=== PATIENT | male | born 1965 | race Caucasian/White ===

== ENCOUNTER 2017-02-05 07:55 | Emergency (ER) | payer OTHER, MEDICAID ==
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
[2017-02-05 08:32] LABS: ABSOLUTE BASOPHILS # (AUTO) 0.1 10^3/uL (0.0-0.2); ABSOLUTE EOSINOPHILS # (AUTO) 0.1 10^3/uL (0.0-0.6); ABSOLUTE LYMPHOCYTES (AUTO) 2.3 10^3/uL (0.5-4.7); ABSOLUTE MONOCYTES (AUTO) 0.6 10^3/uL (0.1-1.4); ABSOLUTE NEUT (AUTO) 5.6 10^3/uL (1.7-8.2); BASOPHILS % (AUTO) 0.7 % (0-2); EOSINOPHILS % (AUTO) 1.4 % (0-6); HEMATOCRIT 41.2 % (37.9-51.0); HEMOGLOBIN 13.8 g/dL (13.5-17.0); HGB HCT DIFFERENCE 0.2; LYMPHOCYTES % (AUTO) 26.4 % (13-45); MEAN CORPUSCULAR HEMOGLOBIN 27.9 pg (27.0-33.4); MEAN CORPUSCULAR HGB CONC 33.6 g/dL (32.0-36.0); MEAN CORPUSCULAR VOLUME 83 fl (80-97); MONOCYTES % (AUTO) 7.1 % (3-13); RED BLOOD COUNT 4.96 10^6/uL (4.35-5.55); RED CELL DISTRIBUTION WIDTH 14.7 % (11.5-14.0); SEGMENTED NEUTROPHILS % (AUTO) 64.4 % (42-78); WHITE BLOOD COUNT 8.7 10^3/uL (4.0-10.5)
[2017-02-05 08:43] LABS: ALANINE AMINOTRANSFERASE 44 U/L (21-72); ALBUMIN 3.4 g/dL (3.5-5.0); ALKALINE PHOSPHATASE 99 U/L (38-126); ANION GAP 12 (5-19); ASPARTATE AMINO TRANSFERASE 38 U/L (17-59); BILIRUBIN,DIRECT 0.3 mg/dL (0.0-0.4); BILIRUBIN,TOTAL 0.3 mg/dL (0.2-1.3); BLOOD UREA NITROGEN 10 mg/dL (7-20); CALCIUM 8.9 mg/dL (8.4-10.2); CARBON DIOXIDE 26 mmol/L (22-30); CHLORIDE 104 mmol/L (98-107); CREATINE KINASE 120 U/L (55-170); CREATININE RESULT 0.44 mg/dL (0.52-1.25); GLUCOSE 209 mg/dL (75-110); POTASSIUM 3.8 mmol/L (3.6-5.0); SODIUM 141.8 mmol/L (137-145); TOTAL PROTEIN 6.5 g/dL (6.3-8.2)
[2017-02-05 08:56] LABS: TROPONIN I < 0.012 ng/mL
[2017-02-05 10:16] VITALS: BP 177/101
[2017-02-05 10:41] LABS: APPEARANCE,URINE CLEAR; BILIRUBIN,URINE NEGATIVE (NEGATIVE); GLUCOSE, URINE 150 mg/dL (NEGATIVE); KETONES,URINE NEGATIVE (NEGATIVE); LEUKOCYTE ESTERASE,URINE NEGATIVE (NEGATIVE); NITRITE,URINE NEGATIVE (NEGATIVE); PROTEIN,URINE 100 mg/dL (NEGATIVE); URINE SPECIFIC GRAVITY 1.059; UROBILINOGEN,URINE NEGATIVE mg/dL (<2.0)
[2017-02-05] MEDS ORDERED: MORPHINE SULFATE 10 MG/ML INJ IV ONE (10:55)
--- NOTE | 2017-02-05 18:29 | EKG REPORT ---
SEVERITY:- ABNORMAL ECG - SINUS RHYTHM NONSPECIFIC T ABNORMALITIES, LATERAL LEADS : Confirmed by: Clemente Arias MD 05-Feb-2017 18:28:15
== END 2017-02-05 10:01 | disposition home or self-care (01) ==
LOC: ER 07:55
DX: S39.012A Strain of muscle, fascia and tendon of lower back, initial encounter (principal); R91.8 Other nonspecific abnormal finding of lung field; R07.9 Chest pain, unspecified; V89.2XXA Person injured in unspecified motor-vehicle accident, traffic, initial encounter; E66.01 Morbid (severe) obesity due to excess calories; F17.200 Nicotine dependence, unspecified, uncomplicated; E78.00 Pure hypercholesterolemia, unspecified; I10 Essential (primary) hypertension; J44.9 Chronic obstructive pulmonary disease, unspecified; E11.9 Type 2 diabetes mellitus without complications; Z88.3 Allergy status to other anti-infective agents
CPT/HCPCS: 93005; 99285; 96374; 36415; 82553; 82550; 85025; 80053; 81001; 84484; 71260; 72125; 74177; 93010; J2270

== ENCOUNTER → 2017-03-09 | Outpatient (CLI) | payer MEDICAID ==
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
== END ==
LOC: RAD 07:13
PROVIDERS: ATTEND Internal Medicine Pulmonary Disease
DX: R13.10 Dysphagia, unspecified (principal)
CPT/HCPCS: 74230

== ENCOUNTER → 2017-05-10 | Outpatient (CLI) | payer MEDICAID ==
--- NOTE | 2017-05-10 11:20 | RADIOLOGY REPORT (SQ) ---
EXAM DESCRIPTION: CT CHEST WITHOUT COMPLETED DATE/TIME: 05/10/2017 9:41 am REASON FOR STUDY: PULMONARY NODULES R91.8 OTHER NONSPECIFIC ABNORMAL FINDING OF LUNG FIELD COMPARISON: 02/05/2017 TECHNIQUE: CT scan performed of the chest without intravenous contrast. Images reviewed with lung, soft tissue and bone windows. Reconstructed coronal and sagittal MPR images reviewed. All images st ored on PACS. All CT scanners at this facility use dose modulation, iterative reconstruction, and/or weight based d osing when appropriate to reduce radiation dose to as low as reasonably achievable (ALARA). [facility]: Dose Right [facility]: CareDose [facility]: Dose Right [facility]: Teradose 4D [facility]: Smart [id number] RADIATION DOSE: Up-to-date CT equipment and radiation dose reduction techniques were employed. CTDIv ol: 17.7 mGy. DLP: 732 mGy-cm. mGy. LIMITATIONS: None FINDINGS: LUNGS AND PLEURA: There is a 4 mm nodule in the right lung posteriorly adjacent to a 2 mm nodule. This is seen on image 47 series 4. There is no change. On image 67 there is a 7 mm stable nodule in the right middle lobe. A couple of other small nodules are seen. These likewise are stabl e. There is no new pulmonary nodule. There is no pulmonary infiltrate or pleural effusion. HILAR AND MEDIASTINAL STRUCTURES: There is a 17 mm pretracheal node on image 22. Additional smaller mediastinal nodes are present. There is no significant interval change. HEART AND VASCULAR STRUCTURES: No aneurysm. No pericardial effusion. UPPER ABDOMEN: No significant findings. Limited exam. THYROID AND OTHER SOFT TISSUES: No masses. No adenopathy. BONES: No significant finding. HARDWARE: None in the chest. OTHER: No other significant findings. IMPRESSION: There is a stable appearance of the chest with some small pulmonary nodules and mediasti nal nodes as described. TECHNICAL DOCUMENTATION: JOB ID: [id number] Quality ID # [id number]: Final reports with documentation of one or more dose reduction techniques (e.g., Au tomated exposure control, adjustment of the mA and/or kV according to patient size, use of iterative reconstruction technique) 2010 [employer]- All Rights Reserved
== END ==
LOC: RAD 09:06
PROVIDERS: ATTEND Internal Medicine Pulmonary Disease
DX: R91.8 Other nonspecific abnormal finding of lung field (principal)
CPT/HCPCS: 71250

== ENCOUNTER 2018-05-01 23:36 | Emergency (ER) | payer OTHER, MEDICAID ==
[2018-05-02 01:01] VITALS: BP 183/87
[2018-05-02] MEDS ORDERED: HYDROCODONE/ACETAMINOPHEN 5-325 MG TABLET PO ONE (01:44)
[2018-05-02] MEDS ORDERED: CYCLOBENZAPRINE HCL 10 MG TABLET PO ONE (01:44)
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
== END 2018-05-02 02:04 | disposition home or self-care (01) ==
LOC: ER 23:36
DX: M54.5 Low back pain (principal); M54.2 Cervicalgia; V89.2XXA Person injured in unspecified motor-vehicle accident, traffic, initial encounter; Z88.3 Allergy status to other anti-infective agents; E78.00 Pure hypercholesterolemia, unspecified; I10 Essential (primary) hypertension; E11.9 Type 2 diabetes mellitus without complications
CPT/HCPCS: 99283

== ENCOUNTER 2020-06-28 15:04 | Inpatient (IN) | payer MEDICAID ==
--- NOTE | 2020-06-28 15:54 | ER Document Report ---
ED Hip Pain/Injury - General Chief Complaint: Hip Pain Stated Complaint: FALL INJURY Time Seen by Provider: 06/28/20 15:22 Mode of Arrival: Medic Information source: Patient Notes: 55-year-old male past medical history significant for hypertension, prediabetes, COPD, hyperlipidemia presents to the emergency room after a slip and fall while out having lunch at a restaurant landing on his left hip. Patient states he slipped on a throw rug causing him to fall landing on his left hip. Unable to ambulate secondary to pain. Was given 200 mcg of fentanyl along with 1 mg of Dilaudid via EMS prior to arrival. Still complaining of significant pain with any type of movement. No history of previous trauma or injury to his left hip. TRAVEL OUTSIDE OF THE [place] IN LAST 30 DAYS: No - Related Data Allergies/Adverse Reactions: naproxen [Naproxen] Allergy (Verified 05/19/13 18:50) sulfamethoxazole [From Septra DS] Allergy (Verified 05/19/13 18:50) trimethoprim [From Septra DS] Allergy (Verified 05/19/13 18:50) flowfast Allergy (Uncoded 06/13/19 00:26) Past Medical History - General Information source: Patient - Social History Smoking Status: Current Every Day Smoker Frequency of alcohol use: None Drug Abuse: None Family History: Reviewed & Not Pertinent - Past Medical History Cardiac Medical History: Reports: Hx Hypercholesterolemia, Hx Hypertension Denies: Hx Coronary Artery Disease, Hx Heart Attack Pulmonary Medical History: Reports: Hx Asthma, Hx Bronchitis, Hx COPD, Hx Pneumonia Neurological Medical History: Denies: Hx Cerebrovascular Accident, Hx Seizures Endocrine Medical History: Reports: Hx Diabetes Mellitus Type 2 Renal/ Medical History: Denies: Hx Peritoneal Dialysis Musculoskeletal Medical History: Reports Hx Arthritis Past Surgical History: Reports: Hx Abdominal Surgery - umbilical hernia repair, Hx Appendectomy, Hx Orthopedic Surgery. Denies: Hx Pacemaker - Immunizations Hx Diphtheria, Pertussis, Tetanus Vaccination: Yes Review of Systems - Review of Systems Constitutional: No symptoms reported Cardiovascular: No symptoms reported Respiratory: No symptoms reported Gastrointestinal: No symptoms reported Musculoskeletal: Joint pain Skin: No symptoms reported Neurological/Psychological: No symptoms reported -: Yes All other systems reviewed and negative Physical Exam - Vital signs Vitals: Resp Pulse Ox 12 96 06/28/20 15:24 06/28/20 15:24 - General General appearance: Appears well, Alert In distress: Moderate - Respiratory Respiratory status: No respiratory distress Chest status: Nontender Breath sounds: Normal Chest palpation: Normal - Cardiovascular Rhythm: Regular Heart sounds: Normal auscultation Murmur: No - Abdominal Inspection: Normal Distension: No distension Bowel sounds: Normal Tenderness: Nontender Organomegaly: No organomegaly - Extremities General upper extremity: Normal inspection Hip: Tender - Numbness on palpation over the left lateral hip. Left leg is shortened and rotated outward. Pain with any type of movement to the left hip., Pain with ROM, Unable to bear weight - Neurological Neuro grossly intact: Yes Cognition: Normal Orientation: AAOx4 Ann[place] Coma Scale Eye Opening: Spontaneous Ann-Marie Coma Scale Verbal: Oriented Ann-Marie Coma Scale Motor: Obeys Commands [place] Coma Scale Total: 15 Speech: Normal Motor strength normal: LUE, RUE, LLE, RLE Sensory: Normal Notes: Positive left pedal pulse. - Skin Skin Temperature: Warm Skin Moisture: Dry Skin Color: Normal Course - Re-evaluation Re-evalutation: 06/28/20 15:59 Patient with obvious hip fracture noted on x-ray prior to official reading. Will get labs, EKG, patient aware of need for admission pending all test results. 06/28/20 17:19 Have reviewed all test results with patient. He is aware of need for admission. Patient is agreeable to admission. Patient is aware that I have spoken with the orthopedist Dr. Olson who will see patient in the emergency room. - Vital Signs Vital signs: Temp Pulse Resp BP Pulse Ox 98.1 F 14 166/97 H 97 06/28/20 15:27 06/28/20 18:30 06/28/20 18:30 06/28/20 18:30 - Laboratory Result Diagrams: 06/28/20 16:09 06/28/20 16:09 Laboratory results interpreted by me: 06/28/20 06/28/20 06/28/20 16:09 16:09 18:00 WBC 15.7 H RDW 15.9 H Absolute Neuts (auto) 12.2 H Sodium 136.0 L Glucose 164 H Urine Protein >=500 H - Diagnostic Test Radiology reviewed: Reports reviewed - EKG Interpretation by Me EKG shows normal: Sinus rhythm Rhythm: NSR Additional EKG results interpreted by me: 06/28/20 16:02 EKG was interpreted by ER physician Dr. Rose No acute STEMI Normal sinus rhythm Rate 84 Borderline T wave abnormalities - Consults Dr. Olson Time consulted: 17:05 Reason for consultation: 06/28/20 17:12 Reviewed patient's testing as well as positive left comminuted intertrochanteric hip fracture. Dr. Olson would like patient admitted to medicine with orthopedic consult. Will come to the emergency room to see the patient. Consulted provider: will come to ER Laureen Sal Reason for consultation: 06/28/20 17:20 Spoke with nurse practitioner Laureen Sal who states patient does not meet criteria to be medically admitted that patient should be admitted to orthopedics with medicine consult. Will notify Dr. Olson of hospitalist decision. 06/28/20 18:57 Patient was seen and evaluated by Laureen Allen nurse practitioner after Dr. Ra kelley spoke with Dr. Larson and it was agreed that patient would be admitted to medicine with orthopedic consult. Consulted provider: will come to ER Discharge - Discharge Clinical Impression: Closed left hip fracture Qualifiers: Encounter type: initial encounter Qualified Code(s): S72.002A - Fracture of unspecified part of neck of left femur, initial encounter for closed fracture Condition: Stable Disposition: ADMITTED INPATIENT Admitting Provider: Michelle (Hospitalist) Unit Admitted: Medical Floor
--- NOTE | 2020-06-28 16:05 | RADIOLOGY REPORT (SQ) ---
EXAM DESCRIPTION: HIP LEFT AP/LATERAL IMAGES COMPLETED DATE/TIME: 06/28/2020 3:57 pm REASON FOR STUDY: unable to bear weight COMPARISON: None. NUMBER OF VIEWS: Two views. TECHNIQUE: AP and frog-leg view of the left hip. LIMITATIONS: None. FINDINGS: MINERALIZATION: Osteopenia. LEFT HIP: Comminuted intratrochanteric left hip fracture. OPPOSITE HIP: No fracture or dislocation. No worrisome bone lesions. SOFT TISSUES: No findings. OTHER: No other significant finding. IMPRESSION: Comminuted intratrochanteric left hip fracture. COMMENT: Pelvic fractures are often occult on plain radiographs. If strong clinical suspicion for f racture, recommend CT or MR. TECHNICAL DOCUMENTATION: JOB ID: [id number] 2010 [employer]- All Rights Reserved Reading location - IP/workstation name: [email or web address]
--- NOTE | 2020-06-28 16:13 | RADIOLOGY REPORT (SQ) ---
EXAM DESCRIPTION: CHEST SINGLE VIEW IMAGES COMPLETED DATE/TIME: 06/28/2020 4:05 pm REASON FOR STUDY: pre op COMPARISON: 05/19/2013 EXAM PARAMETERS: NUMBER OF VIEWS: One view. TECHNIQUE: Single frontal radiographic view of the chest acquired. RADIATION DOSE: NA LIMITATIONS: None. FINDINGS: LUNGS AND PLEURA: No opacities, masses or pneumothorax. No pleural effusion. MEDIASTINUM AND HILAR STRUCTURES: No masses. Contour normal. HEART AND VASCULAR STRUCTURES: Heart normal in size. Normal vasculature. BONES: No acute findings. HARDWARE: None in the chest. OTHER: No other significant finding. IMPRESSION: NO ACUTE RADIOGRAPHIC FINDING IN THE CHEST. TECHNICAL DOCUMENTATION: JOB ID: [id number] 2010 [employer]- All Rights Reserved Reading location - IP/workstation name: [email or web address]
[2020-06-28 16:32] LABS: ABSOLUTE BASOPHILS # (AUTO) 0.1 10^3/uL (0.0-0.2); ABSOLUTE EOSINOPHILS # (AUTO) 0.1 10^3/uL (0.0-0.6); ABSOLUTE LYMPHOCYTES (AUTO) 2.3 10^3/uL (0.5-4.7); ABSOLUTE MONOCYTES (AUTO) 0.9 10^3/uL (0.1-1.4); ABSOLUTE NEUT (AUTO) 12.2 10^3/uL (1.7-8.2); BASOPHILS % (AUTO) 0.6 % (0-2); EOSINOPHILS % (AUTO) 0.9 % (0-6); HEMATOCRIT 42.6 % (37.9-51.0); HEMOGLOBIN 14.4 g/dL (13.5-17.0); MEAN CORPUSCULAR HEMOGLOBIN 27.5 pg (27.0-33.4); MEAN CORPUSCULAR HGB CONC 33.8 g/dL (32.0-36.0); MEAN CORPUSCULAR VOLUME 81 fl (80-97); MONOCYTES % (AUTO) 5.6 % (3-13); PLATELET COUNT 258 10^3/uL (150-450); RED BLOOD COUNT 5.24 10^6/uL (4.35-5.55); RED CELL DISTRIBUTION WIDTH 15.9 % (11.5-14.0); SEGMENTED NEUTROPHILS % (AUTO) 77.9 % (42-78); TOTAL CELLS COUNTED % (AUTO) 100 %; WHITE BLOOD COUNT 15.7 10^3/uL (4.0-10.5)
--- NOTE | 2020-06-28 16:40 | EKG REPORT ---
SEVERITY:- BORDERLINE ECG - SINUS RHYTHM BORDERLINE T WAVE ABNORMALITIES : Confirmed by: Joshua Pulliam MD 28-Jun-2020 16:40:06
[2020-06-28 16:51] LABS: ALKALINE PHOSPHATASE 101 U/L (38-126); ANION GAP 5 (5-19); ASPARTATE AMINO TRANSFERASE 22 U/L (17-59); BILIRUBIN,TOTAL 0.4 mg/dL (0.2-1.3); BLOOD UREA NITROGEN 16 mg/dL (7-20); CALCIUM 8.8 mg/dL (8.4-10.2); CARBON DIOXIDE 27 mmol/L (22-30); CHLORIDE 104 mmol/L (98-107); GLUCOSE 164 mg/dL (75-110); POTASSIUM 4.2 mmol/L (3.6-5.0); TOTAL PROTEIN 7.5 g/dL (6.3-8.2)
[2020-06-28] MEDS ORDERED: ONDANSETRON HCL INJ/PF 4 MG/2 ML SDV IV ONE (17:19)
[2020-06-28] MEDS ORDERED: MORPHINE SULFATE 10 MG/ML INJ IV ONE (17:19)
[2020-06-28] MEDS ORDERED: ALBUTEROL SULFATE 0.083% NEB 2.5 MG/3 ML AMPUL NEB PRN (18:40)
[2020-06-28] MEDS ORDERED: ONDANSETRON HCL INJ/PF 4 MG/2 ML SDV IV PRN (18:40)
[2020-06-28] MEDS ORDERED: MAG HYDROX/AL HYDROX/SIMETH SUSP 30 ML UDCUP PO PRN (18:40)
[2020-06-28] MEDS ORDERED: ACETAMINOPHEN 325 MG TABLET PO PRN (18:40)
[2020-06-28] MEDS ORDERED: HYDRALAZINE HCL INJ/PF 20 MG/1 ML SDV IV PRN (18:45)
[2020-06-28] MEDS ORDERED: DEXTROSE 50%-WATER 25 GM/50 ML DISP.SYRIN IV PRN ×2 (18:47)
[2020-06-28] MEDS ORDERED: GLUCAGON,HUMAN RECOMB 1 MG INJ IM PRN (18:47)
[2020-06-28] MEDS ORDERED: DEXTROSE 40% GEL 15 GM TUBE PO PRN ×2 (18:47)
[2020-06-28] MEDS ORDERED: MORPHINE SULFATE 10 MG/ML INJ IV PRN (18:48)
[2020-06-28 18:49] LABS: APPEARANCE,URINE CLEAR; BILIRUBIN,URINE NEGATIVE (NEGATIVE); COLOR,URINE YELLOW; GLUCOSE, URINE NEGATIVE (NEGATIVE); KETONES,URINE NEGATIVE (NEGATIVE); LEUKOCYTE ESTERASE,URINE NEGATIVE (NEGATIVE); NITRITE,URINE NEGATIVE (NEGATIVE); PROTEIN,URINE >=500 mg/dL (NEGATIVE); URINE SPECIFIC GRAVITY 1.033; UROBILINOGEN,URINE NEGATIVE mg/dL (<2.0)
--- NOTE | 2020-06-28 19:15 | PDOC CONSULTATION ---
Consultation Consult Date: 06/28/20 Provider Consulted: SUDARSHAN GELLER JR History of Present Illness Admission Date/PCP: LAURI KEENAN DO History of Present Illness: ASTER BYRD is a 55 year old male with a PMH of hyptertension, diabetes, non-compliant COPD, daily tobacco use, and osteomyelitis. The patient slipped on a rug in his home resulting on a fall on his right hip with subsequent inability to ambulate and pain. He denies head injury, LOC or pain elsewhere. Pain is aching in nature, 8/10, worse with activity, improved with rest and pain medications. He has a history of osteomyelitis of the tibia with multiple prior debridements that eventually cleared years ago. No history of osteo proximal to the knee. Past Medical History Cardiac Medical History: Reports: Hyperlipidema, Hypertension Denies: Coronary Artery Disease, Myocardial Infarction Pulmonary Medical History: Reports: Asthma, Bronchitis, Chronic Obstructive Pulmonary Disease (COPD), Pneumonia Neurological Medical History: Denies: Seizures Endocrine Medical History: Reports: Diabetes Mellitus Type 2 Musculoskeltal Medical History: Reports: Arthritis Hematology: Denies: Anemia Past Surgical History Past Surgical History: Reports: Appendectomy, Orthopedic Surgery Denies: Pacemaker Social History Smoking Status: Current Every Day Smoker Family History Family History: Reviewed & Not Pertinent Parental Family History Reviewed: No Children Family History Reviewed: NA Sibling(s) Family History Reviewed.: NA Medication/Allergy Home Medications: Albuterol Sulfate [Ventolin Hfa Mdi 8 gm (ER Dispense)] 2 puff IH Q4H PRN 01/21/12 Lisinopril/Hydrochlorothiazide [Zestoretic 20-25 Mg Tablet] 1 each PO DAILY 01/21/12 Amlodipine Besylate [Norvasc 2.5 mg Tablet] 5 mg PO QHS 09/08/12 Atorvastatin Calcium [Lipitor 40 mg Tablet] 40 mg PO QHS 09/08/12 Fluticasone Propion/Salmeterol [Advair 100-50 Diskus] 1 each IH BID 09/08/12 Sitagliptin Phos/Metformin HCl [Janumet 50-1,000 Mg Tablet] 1 each PO DAILY 09/08/12 Ubidecarenone/Vit E Acet [Co Q-10 100 mg Softgel] 1 each PO QHS 09/08/12 Cyclobenzaprine HCl [Flexeril 10 Mg Tablet] 10 mg PO TID #10 tablet 05/19/13 Gabapentin [Neurontin] 600 mg PO TID 05/19/13 Oxycodone HCl/Acetaminophen [Percocet 5-325 mg Tablet] 1 - 2 tab PO ASDIR PRN #15 tablet 05/19/13 Ciprofloxacin HCl [Cipro 500 mg Tablet] 500 mg PO BID #14 tablet 07/05/14 Clindamycin HCl [Cleocin Hcl] 300 mg PO TID #21 capsule 07/05/14 Oxycodone HCl/Acetaminophen [Percocet 5-325 mg Tablet] 1 - 2 tab PO ASDIR PRN #15 tablet 07/05/14 Oxycodone HCl/Acetaminophen [Percocet 10-325 Mg Tablet] 1 each PO Q6HP PRN #25 tablet 03/12/15 Lidocaine [Lidoderm 5% (700 mg) Transdermal Patch] 1 patch TP DAILY #30 a dh..patch 09/23/15 Oxycodone HCl/Acetaminophen [Percocet 5-325 mg Tablet] 1 - 2 tab PO ASDIR PRN #3 0 tablet 09/23/15 Cyclobenzaprine HCl [Flexeril 10 mg Tablet] 10 mg PO TIDP PRN #15 tab 05/02/18 Ibuprofen [Motrin 800 mg Tablet] 800 mg PO Q8H PRN #30 tab 05/02/18 Allergies/Adverse Reactions: naproxen [Naproxen] Allergy (Verified 05/19/13 18:50) sulfamethoxazole [From Septra DS] Allergy (Verified 05/19/13 18:50) trimethoprim [From Septra DS] Allergy (Verified 05/19/13 18:50) flowfast Allergy (Uncoded 06/13/19 00:26) Review of Systems Review of Systems: Constitutional: ABSENT: anorexia, chills, night sweats Cardiovascular: ABSENT: chest pain Respiratory: ABSENT: dyspnea Gastrointestinal: ABSENT: vomiting Genitourinary: ABSENT: dysuria Integumentary: ABSENT: rash Neurological: ABSENT: confusion, memory loss, numbness Psychiatric: ABSENT: hallucinations Hematologic/Lymphatic: ABSENT: easy bleeding Physical Exam Vital Signs: Temp Pulse Resp BP Pulse Ox 98.1 F 14 166/97 H 97 06/28/20 15:27 06/28/20 18:30 06/28/20 18:30 06/28/20 18:30 Intake & Output 06/27/20 06/28/20 06/29/20 06:59 06:59 06:59 Weight 103.8 kg Physical Exam: General appearance: PRESENT: no acute distress, cooperative, well-nourished Head exam: PRESENT: atraumatic, normocephalic Eye exam: PRESENT: EOMI Ear exam: PRESENT: normal external ear exam Mouth exam: PRESENT: neck supple Neck exam: ABSENT: tracheal deviation Respiratory exam: PRESENT: symmetrical, unlabored. ABSENT: accessory muscle use, wheezes Pulses: PRESENT: normal radial pulses, normal dorsalis pedis pulse Vascular exam: PRESENT: normal capillary refill GI/Abdominal exam: ABSENT: distended, firm Extremities exam: PRESENT: full ROM of bilateral shoulders, elbows wrists, knees, hips and ankles without pain Musculoskeletal exam: PRESENT: full ROM, normal inspection of all 4 extremities aside from that noted below. Neurological exam: PRESENT: alert, awake, oriented to person, oriented to place, oriented to time Psychiatric exam: PRESENT: appropriate affect. ABSENT: agitated Focused psych exam: ABSENT: catatonic Skin exam: PRESENT: intact. ABSENT: dry All as above aside from that noted in the HPI and the following: Left lower extremity -Pulses 2+ distally -Compartments soft -Sensation grossly intact to L3-4-5 S1 -Motor grossly intact to EHL TA gastroc and quad -Shortened externally rotated Results Laboratory Results: 06/28/20 16:09 06/28/20 16:09 06/28/20 06/28/20 16:09 16:09 WBC 15.7 H RBC 5.24 Hgb 14.4 Hct 42.6 MCV 81 MCH 27.5 MCHC 33.8 RDW 15.9 H Plt Count 258 Seg Neutrophils % 77.9 Sodium 136.0 L Potassium 4.2 Chloride 104 Carbon Dioxide 27 Anion Gap 5 BUN 16 Creatinine 0.53 Est GFR ( Amer) > 60 Glucose 164 H Calcium 8.8 Total Bilirubin 0.4 AST 22 Alkaline Phosphatase 101 Total Protein 7.5 Albumin 4.0 Impressions: Hip X-Ray 06/28/20 15:12 IMPRESSION: Comminuted intratrochanteric left hip fracture. Chest X-Ray 06/28/20 15:51 IMPRESSION: NO ACUTE RADIOGRAPHIC FINDING IN THE CHEST. Assessment & Plan - Diagnosis (1) Intertrochanteric fracture of left femur Plan: Plan for OR tomorrow. -Keep n.p.o. at midnight tonight -Hold all chemical anticoagulation at 12:00 -Bedrest -Pain control -2 g Ancef on-call
--- NOTE | 2020-06-28 19:23 | PDOC H&P ---
History of Present Illness Admission Date/PCP: 06/28/20 18:44 LAURI KEENAN DO Patient complains of: Left hip pain History of Present Illness: ASTER BYRD is a 55 year old male with a past medical history significant for hypertension, hyperlipidemia, COPD, DM2, BPH, tobacco dependence with continuous use, and obesity who presented to the emergency department via EMS after mechanical fall resulting in left hip pain. Evaluation emergency department revealed hypertension but otherwise stable vital signs, leukocytosis, unremarkable chemistry, and proteinuria. EKG showed normal sinus rhythm. Chest x-ray benign. Hip x-ray demonstrated a comminuted intertrochanteric left hip fracture. After discussion with the orthopedic service, it was decided that a hospitalist service would provide admission with Ortho consulting. Past Medical History Cardiac Medical History: Reports: Hyperlipidema, Hypertension Denies: Coronary Artery Disease, Myocardial Infarction Pulmonary Medical History: Reports: Asthma, Bronchitis, Chronic Obstructive Pulmonary Disease (COPD), Pneumonia EENT Medical History: Reports: None Neurological Medical History: Denies: Seizures Endocrine Medical History: Reports: Diabetes Mellitus Type 2 Renal/ Medical History: Reports: None Malignancy Medical History: Reports: None GI Medical History: Reports: None Musculoskeltal Medical History: Reports: Arthritis Psychiatric Medical History: Reports: Tobacco Dependency Traumatic Medical History: Reports: None Hematology: Denies: Anemia Infectious Medical History: Reports: None Past Surgical History Past Surgical History: Reports: Appendectomy, Orthopedic Surgery Denies: Pacemaker Social History Information Source: Patient Smoking Status: Current Every Day Smoker Cigarettes Packs Per Day: 1 Frequency of Alcohol Use: None Hx Recreational Drug Use: Yes Drugs: Marijuana Hx Prescription Drug Abuse: No - Advance Directive Resuscitation Status: Full Code Family History Family History: Reviewed & Not Pertinent Parental Family History Reviewed: Yes Children Family History Reviewed: Yes Sibling(s) Family History Reviewed.: Yes Medication/Allergy Home Medications: No Home Medications 06/28/20 Allergies/Adverse Reactions: naproxen [Naproxen] Allergy (Verified 05/19/13 18:50) sulfamethoxazole [From Septra DS] Allergy (Verified 05/19/13 18:50) trimethoprim [From Septra DS] Allergy (Verified 05/19/13 18:50) flowfast Allergy (Uncoded 06/13/19 00:26) Review of Systems Constitutional: ABSENT: chills, fever(s), headache(s), weight gain, weight loss Eyes: ABSENT: visual disturbances Ears: ABSENT: hearing changes Cardiovascular: ABSENT: chest pain, dyspnea on exertion, edema, orthropnea, palpitations Respiratory: ABSENT: cough, hemoptysis Gastrointestinal: ABSENT: abdominal pain, constipation, diarrhea, hematemesis, hematochezia, nausea, vomiting Genitourinary: ABSENT: dysuria, hematuria Musculoskeletal: PRESENT: other - LLE shortened and externally rotated. ABSENT: joint swelling Integumentary: ABSENT: rash, wounds Neurological: ABSENT: abnormal gait, abnormal speech, confusion, dizziness, foc al weakness, syncope Psychiatric: ABSENT: anxiety, depression, homidical ideation, suicidal ideation Endocrine: ABSENT: cold intolerance, heat intolerance, polydipsia, polyuria Hematologic/Lymphatic: ABSENT: easy bleeding, easy bruising Physical Exam Vital Signs: Temp Pulse Resp BP Pulse Ox 98.1 F 14 166/97 H 97 06/28/20 15:27 06/28/20 18:30 06/28/20 18:30 06/28/20 18:30 Intake & Output 06/27/20 06/28/20 06/29/20 06:59 06:59 06:59 Weight 103.8 kg General appearance: PRESENT: no acute distress, cooperative, disheveled, morbidly obese, well-developed, well-nourished Head exam: PRESENT: atraumatic, normocephalic Eye exam: PRESENT: conjunctiva pink, EOMI, PERRLA. ABSENT: scleral icterus Mouth exam: PRESENT: moist, tongue midline Teeth exam: PRESENT: poor dentation Respiratory exam: PRESENT: clear to auscultation daisha, symmetrical, unlabored. ABSENT: rales, rhonchi, wheezes Cardiovascular exam: PRESENT: RRR, +S1, +S2. ABSENT: diastolic murmur, rubs, systolic murmur Pulses: PRESENT: normal dorsalis pedis pul Vascular exam: PRESENT: normal capillary refill Extremities exam: PRESENT: tenderness - LLE. ABSENT: calf tenderness, clubbing, pedal edema Neurological exam: PRESENT: alert, awake, oriented to person, oriented to place, oriented to time, oriented to situation, CN II-XII grossly intact. ABSENT: motor sensory deficit Psychiatric exam: PRESENT: appropriate affect, normal mood. ABSENT: homicidal ideation, suicidal ideation Skin exam: PRESENT: dry, intact, warm. ABSENT: cyanosis, rash Results Laboratory Results: 06/28/20 16:09 06/28/20 16:09 06/28/20 06/28/20 06/28/20 16:09 16:09 18:00 WBC 15.7 H RBC 5.24 Hgb 14.4 Hct 42.6 MCV 81 MCH 27.5 MCHC 33.8 RDW 15.9 H Plt Count 258 Seg Neutrophils % 77.9 Sodium 136.0 L Potassium 4.2 Chloride 104 Carbon Dioxide 27 Anion Gap 5 BUN 16 Creatinine 0.53 Est GFR ( Amer) > 60 Glucose 164 H Calcium 8.8 Total Bilirubin 0.4 AST 22 Alkaline Phosphatase 101 Total Protein 7.5 Albumin 4.0 Urine Color YELLOW Urine Appearance CLEAR Urine pH 5.0 Ur Specific [place] 1.033 Urine Protein >=500 H Urine Glucose (UA) NEGATIVE Urine Ketones NEGATIVE Urine Blood NEGATIVE Urine Nitrite NEGATIVE Ur Leukocyte Esterase NEGATIVE Urine WBC (Auto) 0 Urine RBC (Auto) 2 Impressions: Hip X-Ray 06/28/20 15:12 IMPRESSION: Comminuted intratrochanteric left hip fracture. Chest X-Ray 06/28/20 15:51 IMPRESSION: NO ACUTE RADIOGRAPHIC FINDING IN THE CHEST. Assessment and Plan - Diagnosis (1) Closed left hip fracture Qualifiers: Encounter type: initial encounter Qualified Code(s): S72.002A - Fracture of unspecified part of neck of left femur, initial encounter for closed fracture Is this a current diagnosis for this admission?: Yes Plan: Patient is admitted to the medical floor. NPO after midnight. SUBCU heparin for DVT prophylaxis preop; per ortho recommendations post operatively. IVF while in NPO status. Analgesics and anti-emetics as needed. Aggressive pulmonary toilet. Discharge planning is consulted. (2) COPD (chronic obstructive pulmonary disease) Qualifiers: COPD type: unspecified COPD Qualified Code(s): J44.9 - Chronic obstructive pulmonary disease, unspecified Is this a current diagnosis for this admission?: Yes Plan: Without exacerbation. DuoNeb twice daily. Albuterol nebs as needed. Incentive spirometer, flutter valve. No indications for antibiotics or steroid therapy at this time. (3) DM type 2 (diabetes mellitus, type 2) Qualifiers: Diabetes mellitus ad terminal makeup operator insulin use: without mcc use Is this a current diagnosis for this admission?: Yes Plan: Holding oral medications while admitted. Patient is placed on a consistent carb diet. Accu-Cheks before meals and at bedtime with Humalog for sliding scale coverage. Hypoglycemia protocol in place. (4) Tobacco dependence Is this a current diagnosis for this admission?: Yes Plan: Smoking cessation encouraged. Nicotine replacement therapies provided. (5) Hypertension Qualifiers: Hypertension type: essential hypertension Qualified Code(s): I10 - Essential (primary) hypertension Is this a current diagnosis for this admission?: Yes Plan: Resume home medications once reconciled. IV hydralazine as needed for blood pressure control. Cardiac diet; n.p.o. after midnight. - Time Time Spent with patient: 35 or more minutes Medications reviewed and adjusted accordingly: Yes Anticipated Discharge Disposition: Home with Home Health - vs short term rehab Anticipated Discharge Timeframe: >72 hrs
[2020-06-28] MEDS: MORPHINE SULFATE 10 MG/ML INJ IV PRN ×2 (19:40→22:49)
[2020-06-28] MEDS: IPRATROPIUM/ALBUTEROL 0.5-2.5 MG/3 ML AMPUL NEB SCH (20:24)
[2020-06-28] MEDS: RINGERS SOLUTION,LACTATED 1,000 ML IV PRN (20:24)
[2020-06-28] MEDS: INSULIN LISPRO 100 UNIT/ML 3 ML VIAL SUBCUT SCH (21:51)
[2020-06-28] MEDS: HEPARIN SOD (PORCINE) 5,000 UNIT/ML 1 ML VIAL SUBCUT SCH (22:51)
[2020-06-28] MEDS: FAMOTIDINE 20 MG TABLET PO SCH (22:51)
[2020-06-29] MEDS ORDERED: [UNRECOGNIZED DRUG - OTHER] IV ONE (00:07)
[2020-06-29] MEDS ORDERED: CEFAZOLIN IV ONE (00:07)
[2020-06-29] MEDS: CEFAZOLIN 2 GM/D5W RTU 2 GM/50 ML RTUPB IV SCH ×2 (00:23→05:07)
[2020-06-29] MEDS: MORPHINE SULFATE 10 MG/ML INJ IV PRN ×7 (02:14→23:00)
[2020-06-29] MEDS: HEPARIN SOD (PORCINE) 5,000 UNIT/ML 1 ML VIAL SUBCUT SCH ×3 (05:05→21:17)
[2020-06-29 05:27] LABS: HEMATOCRIT 42.9 % (37.9-51.0); HEMOGLOBIN 14.2 g/dL (13.5-17.0); MEAN CORPUSCULAR HEMOGLOBIN 27.1 pg (27.0-33.4); MEAN CORPUSCULAR HGB CONC 33.1 g/dL (32.0-36.0); MEAN CORPUSCULAR VOLUME 82 fl (80-97); PLATELET COUNT 257 10^3/uL (150-450); RED BLOOD COUNT 5.25 10^6/uL (4.35-5.55); RED CELL DISTRIBUTION WIDTH 16.1 % (11.5-14.0); WHITE BLOOD COUNT 14.3 10^3/uL (4.0-10.5)
[2020-06-29 05:55] LABS: ANION GAP 5 (5-19); BLOOD UREA NITROGEN 8 mg/dL (7-20); CALCIUM 8.9 mg/dL (8.4-10.2); CARBON DIOXIDE 27 mmol/L (22-30); CHLORIDE 103 mmol/L (98-107); GLUCOSE 165 mg/dL (75-110); POTASSIUM 3.9 mmol/L (3.6-5.0)
[2020-06-29] MEDS: INSULIN LISPRO 100 UNIT/ML 3 ML VIAL SUBCUT SCH ×4 (07:44→21:17)
[2020-06-29] MEDS: RINGERS SOLUTION,LACTATED 1,000 ML IV PRN (07:47)
[2020-06-29] MEDS: IPRATROPIUM/ALBUTEROL 0.5-2.5 MG/3 ML AMPUL NEB SCH ×2 (08:05→20:30)
[2020-06-29] MEDS ORDERED: NEOSTIGMINE METHYLSULFATE 10 MG/10 ML VIAL ONE (09:49)
[2020-06-29] MEDS ORDERED: GLYCOPYRROLATE 1 MG/5 ML VIAL ONE (09:49)
[2020-06-29] MEDS ORDERED: ONDANSETRON HCL INJ/PF 4 MG/2 ML SDV ONE ×2 (09:49→12:58)
[2020-06-29] MEDS: FAMOTIDINE 20 MG TABLET PO SCH ×2 (10:00→21:18)
[2020-06-29] MEDS ORDERED: CEFAZOLIN SODIUM 2 GM in DEXTROSE 5%-WATER 100 ML IV SCH (12:00)
[2020-06-29] MEDS ORDERED: METOPROLOL TARTRATE PF/INJ 5 MG/5 ML SDV IV ONE (12:15)
[2020-06-29] MEDS ORDERED: LIDOCAINE 2% INJ-PF (100 MG/5 ML) SYRINGE ONE (12:57)
[2020-06-29] MEDS ORDERED: FENTANYL CITRATE INJ/PF 100 MCG/2 ML AMPUL ONE (12:57)
[2020-06-29] MEDS ORDERED: MIDAZOLAM 2 MG/2 ML INJ ONE (12:57)
[2020-06-29] MEDS ORDERED: HYDROMORPHONE HCL INJ/PF 2 MG/ML AMPULE ONE (12:58)
[2020-06-29] MEDS ORDERED: PROPOFOL INJ 200 MG/20 ML VIAL IV ONE (12:58)
[2020-06-29] MEDS ORDERED: DEXAMETHASONE SOD PHOSPHATE INJ 4 MG/1 ML VIAL ONE (12:58)
[2020-06-29] MEDS ORDERED: OXYCODONE-ACETAMINOPHEN 5-325 MG TABLET PO PRN ×2 (13:53)
[2020-06-29] MEDS ORDERED: PROMETHAZINE HCL INJ 25 MG/1 ML VIAL IV PRN ×2 (13:53)
[2020-06-29] MEDS ORDERED: MEPERIDINE HCL/PF INJ 25 MG/1 ML DISP.SYRIN IV PRN (13:53)
[2020-06-29] MEDS ORDERED: DIPHENHYDRAMINE HCL 50 MG/ML VIAL IV PRN (13:53)
[2020-06-29] MEDS ORDERED: MORPHINE SULFATE 10 MG/ML INJ IV PRN (13:53)
[2020-06-29] MEDS ORDERED: FENTANYL CITRATE INJ/PF 100 MCG/2 ML AMPUL IV PRN ×3 (13:53)
--- NOTE | 2020-06-29 14:38 | PDOC PROGRESS REPORT ---
Subjective Progress Note for:: 06/29/20 Subjective:: Patient doing well this morning. No acute changes overnight. Reason For Visit: HIP FRACTURE Physical Exam Vital Signs: Temp Pulse Resp BP Pulse Ox 98.0 F 86 18 189/91 H 100 06/29/20 11:11 06/29/20 11:11 06/29/20 11:11 06/29/20 11:11 06/29/20 11:11 Intake & Output 06/28/20 06/29/20 06/30/20 06:59 06:59 06:59 Intake Total 1310 Output Total 1260 325 Balance 50 -325 Weight 100 kg Physical Exam: No acute distress, alert and orient x3. Left lower extremity -Pulses 2+ distally -Compartments soft -Sensation grossly intact to L3-4-5 S1 -Motor grossly intact to EHL TA gastroc and quad -Shortened externally rotated Results Laboratory Results: 06/29/20 04:59 06/29/20 04:59 06/28/20 06/28/20 06/28/20 16:09 16:09 18:00 WBC 15.7 H RBC 5.24 Hgb 14.4 Hct 42.6 MCV 81 MCH 27.5 MCHC 33.8 RDW 15.9 H Plt Count 258 Seg Neutrophils % 77.9 Sodium 136.0 L Potassium 4.2 Chloride 104 Carbon Dioxide 27 Anion Gap 5 BUN 16 Creatinine 0.53 Est GFR ( Amer) > 60 Glucose 164 H Calcium 8.8 Total Bilirubin 0.4 AST 22 Alkaline Phosphatase 101 Total Protein 7.5 Albumin 4.0 Urine Color YELLOW Urine Appearance CLEAR Urine pH 5.0 Ur Specific [place] 1.033 Urine Protein >=500 H Urine Glucose (UA) NEGATIVE Urine Ketones NEGATIVE Urine Blood NEGATIVE Urine Nitrite NEGATIVE Ur Leukocyte Esterase NEGATIVE Urine WBC (Auto) 0 Urine RBC (Auto) 2 06/29/20 06/29/20 04:59 04:59 WBC 14.3 H RBC 5.25 Hgb 14.2 Hct 42.9 MCV 82 MCH 27.1 MCHC 33.1 RDW 16.1 H Plt Count 257 Seg Neutrophils % Sodium 135.2 L Potassium 3.9 Chloride 103 Carbon Dioxide 27 Anion Gap 5 BUN 8 Creatinine 0.46 L Est GFR ( Amer) > 60 Glucose 165 H Calcium 8.9 Total Bilirubin AST Alkaline Phosphatase Total Protein Albumin Urine Color Urine Appearance Urine pH Ur Specific [place] [facility] Urine Protein Urine Glucose (UA) Urine Ketones Urine Blood Urine Nitrite Ur Leukocyte Esterase Urine WBC (Auto) Urine RBC (Auto) Impressions: Hip X-Ray 06/28/20 15:12 IMPRESSION: Comminuted intratrochanteric left hip fracture. Chest X-Ray 06/28/20 15:51 IMPRESSION: NO ACUTE RADIOGRAPHIC FINDING IN THE CHEST. Assessment & Plan - Diagnosis (1) Intertrochanteric fracture of left femur Is this a current diagnosis for this admission?: Yes Plan: Plan for OR today -Bedrest -Pain control -2 g Ancef on-call - Time Time Spent with patient: Less than 15 minutes
--- NOTE | 2020-06-29 15:03 | Operative Report ---
Operative Report DATE OF SURGERY: 06/29/20 PREOPERATIVE DIAGNOSIS: Left intertrochanteric hip fracture POSTOPERATIVE DIAGNOSIS: Left intertrochanteric hip fracture OPERATION: Left hip cephalo-medullary nail SURGEON: SUDARSHAN GELLER JR ANESTHESIA: GA COMPLICATIONS: None ESTIMATED BLOOD LOSS: 100 cc PROCEDURE: DESCRIPTION OF OPERATION: The patient was brought to the operating room, lying supine in their hospital bed. A spinal anesthetic was administered. Once the patient was comfortable, they was transferred over to the fracture table. 2 g Ancef for IV antibiotics were administered preoperatively. The patient was secured onto the fracture table with a boot on the operative leg in a well leg yee. A perineal post had been placed. The left lower extremity was secured down and longitudinal traction applied through the post. C-arm fluoroscopy was then brought in to check fracture alignment, and with adjustments we obtained near anatomic alignment on AP and lateral views. The lateral hip region was then prepped and draped out in the usual sterile fashion. A stab wound incision was made proximal to the tip of the greater trochanter and a long wire was placed on the tip of the greater trochanter. This was placed down into the femur to the level of the lesser trochanter as confirmed by fluoroscopy.. The knife was used to enlarge the opening proximally and a protection guide opening reamer was placed down to the tip of the greater trochanter and then drilled. The cephalo-medullary nail was loaded onto a guide arm and this was then placed into the opened canal. We utilized a 125 degree short nail. We then confirmed under fluoroscopy that it was at the level for appropriate placement of the hip screw. Car was placed through the guide arm and incision was made for the hip screw. A pin was then placed and confirmed to be in the center of the femoral head on both AP and lateral views. Measuring off the pin we found that a 110 mm lag screw screw was appropriate. We then set the reamer to that length and reamed up while confirming with fluoroscopy that in fact the length was appropriate. We then inserted our hip screw. After this we removed the trocar and placed another trocar into the distal screw guide. We made an incision, used a hemostat to spread to bone, and then advanced the trocar into the bone. We then drilled and measured for screw length. We placed the screw and again took pictures confirming placement both on AP and lateral and then took final x-rays with the guide removed. All the wounds were then irrigated with dilute Betadine solution. The fascial layer proximally was repaired with 0 Vicryl stitches. Subcutaneous tissue was closed with inverted 2-0 Monocryl interrupted, and the skin was closed with a minor. Xeroform was then applied followed by sterile 4 x 4's and Tegaderm. The patient was then carefully transferred off the fracture table onto his hospital bed. The patient tolerated the procedure well and was brought to the recovery room in stable condition.
[2020-06-29] MEDS ORDERED: LABETALOL HCL INJ 20 MG/4 ML DISP.SYRIN IV ONE (15:16)
[2020-06-29] MEDS: FENTANYL CITRATE INJ/PF 100 MCG/2 ML AMPUL ONE ×3 (15:20→15:30)
--- NOTE | 2020-06-29 15:46 | PDOC PROGRESS REPORT ---
Subjective Progress Note for:: 06/29/20 Subjective:: ASTER BYRD is a 55 year old male with a past medical history significant for hypertension, hyperlipidemia, COPD, DM2, BPH, tobacco dependence with continuous use, and obesity who was admitted for left hip fracture. Patient was seen on morning rounds. Found resting comfortably on room air. Reports his pain is well controlled at present. Anticipated that he will be going to the OR around noon today for orthopedic repair of his hip fracture. He denies fever, chills, chest pain, palpitations, dyspnea, orthopnea, abdominal pain, nausea vomiting and diarrhea. He has no questions or concerns at this time. No concerns per nursing Reason For Visit: HIP FRACTURE Physical Exam Vital Signs: Temp Pulse Resp BP Pulse Ox 97.9 F 75 18 166/92 H 99 06/29/20 14:47 06/29/20 15:32 06/29/20 15:32 06/29/20 15:32 06/29/20 15:32 Intake & Output 06/28/20 06/29/20 06/30/20 06:59 06:59 06:59 Intake Total 1310 1000 Output Total 1260 325 Balance 50 675 Weight 100 kg General appearance: PRESENT: no acute distress, cooperative, disheveled, obese, well-developed, well-nourished Head exam: PRESENT: atraumatic, normocephalic Eye exam: PRESENT: conjunctiva pink, EOMI, PERRLA. ABSENT: scleral icterus Mouth exam: PRESENT: moist, tongue midline Respiratory exam: PRESENT: clear to auscultation daisha, symmetrical, unlabored. ABSENT: rales, rhonchi, wheezes Cardiovascular exam: PRESENT: RRR, +S1, +S2. ABSENT: diastolic murmur, rubs, systolic murmur Pulses: PRESENT: normal dorsalis pedis pul Vascular exam: PRESENT: normal capillary refill Extremities exam: ABSENT: calf tenderness, clubbing, pedal edema Neurological exam: PRESENT: alert, awake, oriented to person, oriented to place, oriented to time, oriented to situation, CN II-XII grossly intact. ABSENT: motor sensory deficit Psychiatric exam: PRESENT: appropriate affect, normal mood. ABSENT: homicidal ideation, suicidal ideation Skin exam: PRESENT: dry, intact, warm. ABSENT: cyanosis, rash Results Laboratory Results: 06/29/20 04:59 06/29/20 04:59 06/28/20 06/28/20 06/28/20 16:09 16:09 18:00 WBC 15.7 H RBC 5.24 Hgb 14.4 Hct 42.6 MCV 81 MCH 27.5 MCHC 33.8 RDW 15.9 H Plt Count 258 Seg Neutrophils % 77.9 Sodium 136.0 L Potassium 4.2 Chloride 104 Carbon Dioxide 27 Anion Gap 5 BUN 16 Creatinine 0.53 Est GFR ( Amer) > 60 Glucose 164 H Calcium 8.8 Total Bilirubin 0.4 AST 22 Alkaline Phosphatase 101 Total Protein 7.5 Albumin 4.0 Urine Color YELLOW Urine Appearance CLEAR Urine pH 5.0 Ur Specific [place] 1.033 Urine Protein >=500 H Urine Glucose (UA) NEGATIVE Urine Ketones NEGATIVE Urine Blood NEGATIVE Urine Nitrite NEGATIVE Ur Leukocyte Esterase NEGATIVE Urine WBC (Auto) 0 Urine RBC (Auto) 2 06/29/20 06/29/20 04:59 04:59 WBC 14.3 H RBC 5.25 Hgb 14.2 Hct 42.9 MCV 82 MCH 27.1 MCHC 33.1 RDW 16.1 H Plt Count 257 Seg Neutrophils % Sodium 135.2 L Potassium 3.9 Chloride 103 Carbon Dioxide 27 Anion Gap 5 BUN 8 Creatinine 0.46 L Est GFR ( Amer) > 60 Glucose 165 H Calcium 8.9 Total Bilirubin AST Alkaline Phosphatase Total Protein Albumin Urine Color Urine Appearance Urine pH Ur Specific [place] Urine Protein Urine Glucose (UA) Urine Ketones Urine Blood Urine Nitrite Ur Leukocyte Esterase Urine WBC (Auto) Urine RBC (Auto) Impressions: Chest X-Ray 06/28/20 15:51 IMPRESSION: NO ACUTE RADIOGRAPHIC FINDING IN THE CHEST. Assessment and Plan - Diagnosis (1) Closed left hip fracture Qualifiers: Encounter type: initial encounter Qualified Code(s): S72.002A - Fracture of unspecified part of neck of left femur, initial encounter for closed fracture Is this a current diagnosis for this admission?: Yes Plan: Patient is admitted to the medical floor. SUBCU heparin for DVT prophylaxis preop; per ortho recommendations post operatively. Orthopedics is consulted; plan surgical repair. IVF while in NPO status. Analgesics and anti-emetics as needed. Aggressive pulmonary toilet. Discharge planning is consulted. (2) COPD (chronic obstructive pulmonary disease) Qualifiers: COPD type: unspecified COPD Qualified Code(s): J44.9 - Chronic obstructive pulmonary disease, unspecified Is this a current diagnosis for this admission?: Yes Plan: Without exacerbation. DuoNeb twice daily. Albuterol nebs as needed. Incentive spirometer, flutter valve. No indications for antibiotics or steroid therapy at this time. (3) DM type 2 (diabetes mellitus, type 2) Qualifiers: Diabetes mellitus keno terminal operator insulin use: without keno terminal operator use Is this a current diagnosis for this admission?: Yes Plan: Holding oral medications while admitted. Patient is placed on a consistent carb diet. Accu-Cheks before meals and at bedtime with Humalog for sliding scale coverage. Hypoglycemia protocol in place. (4) Tobacco dependence Is this a current diagnosis for this admission?: Yes Plan: Smoking cessation encouraged. Nicotine replacement therapies provided. (5) Hypertension Qualifiers: Hypertension type: essential hypertension Qualified Code(s): I10 - Essential (primary) hypertension Is this a current diagnosis for this admission?: Yes Plan: Patient is not on home antihypertensives. Start lisinopril 20 mg daily. IV hydralazine as needed for blood pressure control. Lopressor 5 mg IV x1 preoperatively. Cardiac diet; n.p.o. after midnight. - Time Time Spent with patient: 25-34 minutes Medications reviewed and adjusted accordingly: Yes Anticipated Discharge Disposition: Home with Home Health Anticipated Discharge Timeframe: within 72 hours
[2020-06-29] MEDS ORDERED: CLONIDINE 0.1 MG/24 HR PATCH.TDWK TD SCH (16:00)
--- NOTE | 2020-06-29 17:07 | RADIOLOGY REPORT (SQ) ---
EXAM DESCRIPTION: NO CHG FLUORO; HIP LEFT AP/LATERAL IMAGES COMPLETED DATE/TIME: 06/29/2020 2:40 pm REASON FOR STUDY: LEFT HIP NAILING COMPARISON: Plain radiograph FLUOROSCOPY TIME: We were 0.9 minutes 5 images saved to PACS. TECHNIQUE: Intra-operative images acquired during surgical procedure to evaluate progress. NUMBER OF IMAGES: 5 LIMITATIONS: None. FINDINGS: Internal fixation with IM ruy and traversing PN. IMPRESSION: IMAGE(S) OBTAINED DURING PROCEDURE. COMMENT: Quality ID [id number]: Final reports for procedures using fluoroscopy that document radiation exp osure indices, or exposure time and number of fluorographic images (if radiation exposure indices are not available) Please consult full operative report of the attending physician for description of the procedure. TECHNICAL DOCUMENTATION: JOB ID: [id number] 2010 [employer]- All Rights Reserved Reading location - IP/workstation name: [email or web address]
--- NOTE | 2020-06-29 17:07 | RADIOLOGY REPORT (SQ) ---
EXAM DESCRIPTION: NO CHG FLUORO; HIP LEFT AP/LATERAL IMAGES COMPLETED DATE/TIME: 06/29/2020 2:40 pm REASON FOR STUDY: LEFT HIP NAILING COMPARISON: Plain radiograph FLUOROSCOPY TIME: We were 0.9 minutes 5 images saved to PACS. TECHNIQUE: Intra-operative images acquired during surgical procedure to evaluate progress. NUMBER OF IMAGES: 5 LIMITATIONS: None. FINDINGS: Internal fixation with IM ruy and traversing PN. IMPRESSION: IMAGE(S) OBTAINED DURING PROCEDURE. COMMENT: Quality ID [id number]: Final reports for procedures using fluoroscopy that document radiation exp osure indices, or exposure time and number of fluorographic images (if radiation exposure indices are not available) Please consult full operative report of the attending physician for description of the procedure. TECHNICAL DOCUMENTATION: JOB ID: [id number] 2010 [employer]- All Rights Reserved Reading location - IP/workstation name: [email or web address]
[2020-06-29] MEDS: LISINOPRIL 10 MG TABLET PO SCH (17:14)
[2020-06-29] MEDS: NICOTINE 21 MG/24 HR PATCH.TD24 TD SCH (17:20)
[2020-06-29] MEDS ORDERED: ACETAMINOPHEN 325 MG TABLET PO PRN ×2 (19:15→19:30)
[2020-06-29] MEDS ORDERED: TRAMADOL HCL 50 MG TABLET PO PRN (19:15)
[2020-06-29] MEDS ORDERED: KETOROLAC TROMETHAMINE INJ/PF 30 MG/1 ML SDV IV PRN (19:16)
[2020-06-29] MEDS: OXYCODONE HCL IR 5 MG TABLET PO PRN (21:19)
[2020-06-29] MEDS: CEFAZOLIN SODIUM 2 GM in DEXTROSE 5%-WATER 100 ML IV SCH (21:19)
[2020-06-30] MEDS: MORPHINE SULFATE 10 MG/ML INJ IV PRN ×5 (01:58→19:59)
[2020-06-30] MEDS: RINGERS SOLUTION,LACTATED 1,000 ML IV PRN (01:59)
[2020-06-30] MEDS: CEFAZOLIN SODIUM 2 GM in DEXTROSE 5%-WATER 100 ML IV SCH ×2 (05:21→13:18)
[2020-06-30] MEDS: HEPARIN SOD (PORCINE) 5,000 UNIT/ML 1 ML VIAL SUBCUT SCH (05:21)
[2020-06-30 06:11] LABS: HEMATOCRIT 41.4 % (37.9-51.0); MEAN CORPUSCULAR HEMOGLOBIN 27.7 pg (27.0-33.4); MEAN CORPUSCULAR HGB CONC 33.8 g/dL (32.0-36.0); MEAN CORPUSCULAR VOLUME 82 fl (80-97); PLATELET COUNT 238 10^3/uL (150-450); RED BLOOD COUNT 5.06 10^6/uL (4.35-5.55); RED CELL DISTRIBUTION WIDTH 16.1 % (11.5-14.0)
[2020-06-30 06:39] LABS: ANION GAP 10 (5-19); BLOOD UREA NITROGEN 10 mg/dL (7-20); CALCIUM 8.6 mg/dL (8.4-10.2); CARBON DIOXIDE 26 mmol/L (22-30); CHLORIDE 103 mmol/L (98-107); GLUCOSE 175 mg/dL (75-110)
[2020-06-30] MEDS: OXYCODONE HCL IR 5 MG TABLET PO PRN ×4 (06:59→23:20)
[2020-06-30] MEDS: INSULIN LISPRO 100 UNIT/ML 3 ML VIAL SUBCUT SCH ×4 (07:39→22:25)
[2020-06-30] MEDS: IPRATROPIUM/ALBUTEROL 0.5-2.5 MG/3 ML AMPUL NEB SCH ×2 (07:54→20:14)
--- NOTE | 2020-06-30 08:17 | PDOC PROGRESS REPORT ---
Subjective Progress Note for:: 06/30/20 Subjective:: Patient doing well this morning. No acute events overnight. Reports pain well controlled. Reason For Visit: HIP FRACTURE Physical Exam Vital Signs: Temp Pulse Resp BP Pulse Ox 98.3 F 82 16 162/87 H 97 06/30/20 04:45 06/30/20 07:56 06/30/20 07:56 06/30/20 04:45 06/30/20 07:56 Intake & Output 06/29/20 06/30/20 07/01/20 06:59 06:59 06:59 Intake Total 1310 3125 Output Total 1260 1770 Balance 50 1355 Weight 100 kg 102.8 kg Physical Exam: No acute distress alert oriented x3 Right lower extremity -Pulses 2+ distally -Compartments soft -Sensation grossly intact to L3-4-5 S1 -Motor grossly intact to EHL TA gastroc and quad Wounds clean dry and intact Results Laboratory Results: 06/30/20 05:44 06/30/20 05:44 06/30/20 06/30/20 05:44 05:44 WBC 16.0 H RBC 5.06 Hgb 14.0 Hct 41.4 MCV 82 MCH 27.7 MCHC 33.8 RDW 16.1 H Plt Count 238 Sodium 138.6 Potassium 4.0 Chloride 103 Carbon Dioxide 26 Anion Gap 10 BUN 10 Creatinine 0.46 L Est GFR ( Amer) > 60 Glucose 175 H Calcium 8.6 Impressions: Chest X-Ray 06/28/20 15:51 IMPRESSION: NO ACUTE RADIOGRAPHIC FINDING IN THE CHEST. Fluoroscopy 06/29/20 00:00 IMPRESSION: IMAGE(S) OBTAINED DURING PROCEDURE. Hip X-Ray 06/29/20 00:00 IMPRESSION: IMAGE(S) OBTAINED DURING PROCEDURE. Assessment & Plan - Diagnosis (1) Intertrochanteric fracture of left femur Is this a current diagnosis for this admission?: Yes Plan: Consider aspirin for 6 weeks, 325 daily for DVT prophylaxis Weightbearing as tolerated Physical therapy to evaluate today, encourage out of bed weightbearing as tolerated activities of daily living Dressing changes as needed Follow-up with me in my office in 10 days at [facility] for surgery. Complete postoperative prophylactic antibiotics - Time Time Spent with patient: Less than 15 minutes
[2020-06-30] MEDS: LISINOPRIL 10 MG TABLET PO SCH (09:56)
[2020-06-30] MEDS: FAMOTIDINE 20 MG TABLET PO SCH ×2 (09:56→22:25)
[2020-06-30] MEDS: ASPIRIN 325 MG TABLET PO SCH (09:57)
[2020-06-30] MEDS: NICOTINE 21 MG/24 HR PATCH.TD24 TD SCH (09:58)
[2020-06-30] MEDS ORDERED: OXYCODONE HCL IR 5 MG TABLET PO PRN (10:42)
--- NOTE | 2020-06-30 15:59 | PDOC PROGRESS REPORT ---
Subjective Progress Note for:: 06/30/20 Subjective:: ASTER BYRD is a 55 year old male with a past medical history significant for hypertension, hyperlipidemia, COPD, DM2, BPH, tobacco dependence with continuous use, and obesity who was admitted for left hip fracture. Now POD #1 cephalo-medullary nail. Patient was seen on morning rounds. Found resting comfortably on room air. Reports his pain is well controlled at present. Ambulated a few steps with FWW today; hopeful to d/c home tomorrow. He denies fever, chills, chest pain, palpitations, dyspnea, orthopnea, abdominal pain, nausea vomiting and diarrhea. He has no questions or concerns at this time. No concerns per nursing Reason For Visit: HIP FRACTURE Physical Exam Vital Signs: Temp Pulse Resp BP Pulse Ox 98.5 F 83 17 142/73 H 98 06/30/20 11:34 06/30/20 11:34 06/30/20 11:34 06/30/20 11:34 06/30/20 11:34 Intake & Output 06/29/20 06/30/20 07/01/20 06:59 06:59 06:59 Intake Total 1310 3125 560 Output Total 1260 1770 Balance 50 1355 560 Weight 100 kg 102.8 kg General appearance: PRESENT: no acute distress, cooperative, obese, well- developed, well-nourished Head exam: PRESENT: atraumatic, normocephalic Eye exam: PRESENT: conjunctiva pink, EOMI, PERRLA. ABSENT: scleral icterus Mouth exam: PRESENT: moist, tongue midline Teeth exam: PRESENT: poor dentation Respiratory exam: PRESENT: clear to auscultation daisha, symmetrical, unlabored. ABSENT: rales, rhonchi, wheezes Cardiovascular exam: PRESENT: RRR, +S1, +S2. ABSENT: diastolic murmur, rubs, systolic murmur Pulses: PRESENT: normal dorsalis pedis pul Vascular exam: PRESENT: normal capillary refill Extremities exam: PRESENT: full ROM. ABSENT: calf tenderness, clubbing, pedal edema Neurological exam: PRESENT: alert, awake, oriented to person, oriented to place, oriented to time, oriented to situation, CN II-XII grossly intact. ABSENT: motor sensory deficit Psychiatric exam: PRESENT: appropriate affect, normal mood. ABSENT: homicidal ideation, suicidal ideation Skin exam: PRESENT: dry, intact, warm. ABSENT: cyanosis, rash Results Laboratory Results: 06/30/20 05:44 06/30/20 05:44 06/30/20 06/30/20 05:44 05:44 WBC 16.0 H RBC 5.06 Hgb 14.0 Hct 41.4 MCV 82 MCH 27.7 MCHC 33.8 RDW 16.1 H Plt Count 238 Sodium 138.6 Potassium 4.0 Chloride 103 Carbon Dioxide 26 Anion Gap 10 BUN 10 Creatinine 0.46 L Est GFR ( Amer) > 60 Glucose 175 H Calcium 8.6 Impressions: Chest X-Ray 06/28/20 15:51 IMPRESSION: NO ACUTE RADIOGRAPHIC FINDING IN THE CHEST. Fluoroscopy 06/29/20 00:00 IMPRESSION: IMAGE(S) OBTAINED DURING PROCEDURE. Hip X-Ray 06/29/20 00:00 IMPRESSION: IMAGE(S) OBTAINED DURING PROCEDURE. Assessment and Plan - Diagnosis (1) Closed left hip fracture Qualifiers: Encounter type: initial encounter Qualified Code(s): S72.002A - Fracture of unspecified part of neck of left femur, initial encounter for closed fracture Is this a current diagnosis for this admission?: Yes Plan: Now POD #1 cephalo-medullary nail. Patient is admitted to the medical floor. ASA 324 mg daily for DVT ppx per Ortho. Orthopedics is consulted; appreciate expertise. Analgesics and anti-emetics as needed. Aggressive pulmonary toilet. Discharge planning is consulted. (2) COPD (chronic obstructive pulmonary disease) Qualifiers: COPD type: unspecified COPD Qualified Code(s): J44.9 - Chronic obstructive pulmonary disease, unspecified Is this a current diagnosis for this admission?: Yes Plan: Without exacerbation. DuoNeb twice daily. Albuterol nebs as needed. Incentive spirometer, flutter valve. No indications for antibiotics or steroid therapy at this time. (3) DM type 2 (diabetes mellitus, type 2) Qualifiers: Diabetes mellitus halfway insulin use: without intermediate project manager use Is this a current diagnosis for this admission?: Yes Plan: Holding oral medications while admitted. Patient is placed on a consistent carb diet. Accu-Cheks before meals and at bedtime with Humalog for sliding scale coverage. Hypoglycemia protocol in place. (4) Tobacco dependence Is this a current diagnosis for this admission?: Yes Plan: Smoking cessation encouraged. Nicotine replacement therapies provided. (5) Hypertension Qualifiers: Hypertension type: essential hypertension Qualified Code(s): I10 - Essential (primary) hypertension Is this a current diagnosis for this admission?: Yes Plan: Patient is not on home antihypertensives. Start lisinopril 20 mg daily. IV hydralazine as needed for blood pressure control. Cardiac diet; n.p.o. after midnight. - Time Time Spent with patient: 25-34 minutes Medications reviewed and adjusted accordingly: Yes Anticipated Discharge Disposition: Home with Home Health Anticipated Discharge Timeframe: within 48 hours
[2020-07-01] MEDS: MORPHINE SULFATE 10 MG/ML INJ IV PRN ×2 (02:33→08:25)
[2020-07-01] MEDS: OXYCODONE HCL IR 5 MG TABLET PO PRN (05:29)
[2020-07-01 06:53] LABS: HEMATOCRIT 40.8 % (37.9-51.0); HEMOGLOBIN 13.7 g/dL (13.5-17.0); MEAN CORPUSCULAR HEMOGLOBIN 27.8 pg (27.0-33.4); MEAN CORPUSCULAR HGB CONC 33.7 g/dL (32.0-36.0); MEAN CORPUSCULAR VOLUME 82 fl (80-97); PLATELET COUNT 265 10^3/uL (150-450); RED BLOOD COUNT 4.95 10^6/uL (4.35-5.55); RED CELL DISTRIBUTION WIDTH 16.4 % (11.5-14.0); WHITE BLOOD COUNT 15.4 10^3/uL (4.0-10.5)
[2020-07-01] MEDS: IPRATROPIUM/ALBUTEROL 0.5-2.5 MG/3 ML AMPUL NEB SCH (08:15)
[2020-07-01] MEDS: INSULIN LISPRO 100 UNIT/ML 3 ML VIAL SUBCUT SCH (08:25)
--- NOTE | 2020-07-01 08:43 | PDOC PROGRESS REPORT ---
Subjective Progress Note for:: 07/01/20 Subjective:: Doing well this morning, no acute events overnight. Reports walking well on his own. Eager for discharge home. Reason For Visit: HIP FRACTURE Physical Exam Vital Signs: Temp Pulse Resp BP Pulse Ox 98.4 F 80 15 137/75 H 96 07/01/20 00:00 07/01/20 08:15 07/01/20 08:15 07/01/20 00:00 07/01/20 08:15 Intake & Output 06/30/20 07/01/20 07/02/20 06:59 06:59 06:59 Intake Total 3125 2505 Output Total 1770 2470 Balance 1355 35 Weight 102.8 kg 102.2 kg Physical Exam: NAD, AOx3 LLE - Sensorimotor grossly intact - Pulses 2+ - Wounds C/D/I Results Laboratory Results: 07/01/20 06:12 06/30/20 05:44 07/01/20 06:12 WBC 15.4 H RBC 4.95 Hgb 13.7 Hct 40.8 MCV 82 MCH 27.8 MCHC 33.7 RDW 16.4 H Plt Count 265 Impressions: Chest X-Ray 06/28/20 15:51 IMPRESSION: NO ACUTE RADIOGRAPHIC FINDING IN THE CHEST. Fluoroscopy 06/29/20 00:00 IMPRESSION: IMAGE(S) OBTAINED DURING PROCEDURE. Hip X-Ray 06/29/20 00:00 IMPRESSION: IMAGE(S) OBTAINED DURING PROCEDURE. Assessment & Plan - Diagnosis (1) Intertrochanteric fracture of left femur Is this a current diagnosis for this admission?: Yes Plan: -Weightbearing as tolerated, no precautions, encourage out of bed BRITT for ADL training - PT/OT -aspirin 325 daily for DVT prophylaxis for 6 weeks -multimodal pain management to avoid excessive narcotics, including gabapentin, tramadol, Toradol, acetaminophen. -Dressing should not be removed for 7 to 10 days until seen in the office -May shower with the dressing intact, if it starts to come off she should not get the incision wet. -Follow-up with Dr. Jonathan Olson, orthopedic surgeon at [facility] for surgery, in 10 days. Call for an appointment. . [address], [place] [address] - Time Time Spent with patient: Less than 15 minutes
--- NOTE | 2020-07-01 09:49 | PDOC DISCHARGE SUMMARY ---
Impression - Admit/DC Date/PCP Admission Date/Primary Care Provider: 06/28/20 18:44 LAURI KEENAN DO Discharge Date: 07/01/20 - Discharge Diagnosis (1) Closed left hip fracture Is this a current diagnosis for this admission?: Yes (2) COPD (chronic obstructive pulmonary disease) Is this a current diagnosis for this admission?: Yes (3) DM type 2 (diabetes mellitus, type 2) Is this a current diagnosis for this admission?: Yes (4) Tobacco dependence Is this a current diagnosis for this admission?: Yes (5) Hypertension Is this a current diagnosis for this admission?: Yes - Additional Information Resuscitation Status: Full Code Discharge Diet: Cardiac Discharge Activity: Activity As Tolerated, Balance Activity w/Rest Referrals: SUDARSHAN GELLER JR, DO [ACTIVE PROVISIONAL STAFF] - (Follow up in 10 days. OFFICE WILL CALL WITH FOLLOW UP APPT) Prescriptions: Aspirin [Aspirin 325 mg Tablet] 325 mg PO DAILY #30 tablet Clonidine [Catapres-Tts 1 (0.1 mg/24 Hr) Transderm Patch] 1 each TD Mo@1000 #4 patch.tdwk Nicotine [Nicoderm 21 mg/24 Hr Transderm Patch] 1 each TD DAILY #30 patch.td24 Oxycodone HCl [Oxy-Ir 5 mg Tablet] 5 - 10 mg PO Q6HP PRN #30 tablet PRN Reason: Lisinopril [Prinivil 10 mg Tablet] 20 mg PO DAILY #60 tablet Home Medications: Acetaminophen [Tylenol 325 mg Tablet] 975 mg PO Q8HP PRN tablet 07/01/20 Aspirin [Aspirin 325 mg Tablet] 325 mg PO DAILY #30 tablet 07/01/20 Clonidine [Catapres-Tts 1 (0.1 mg/24 Hr) Transderm Patch] 1 each TD Mo@1000 #4 patch.tdwk 07/01/20 Lisinopril [Prinivil 10 mg Tablet] 20 mg PO DAILY #60 tablet 07/01/20 Nicotine [Nicoderm 21 mg/24 Hr Transderm Patch] 1 each TD DAILY #30 patch.td24 07/01/20 Oxycodone HCl [Oxy-Ir 5 mg Tablet] 5 - 10 mg PO Q6HP PRN #30 tablet 07/01/20 History of Present Illiness History of Present Illness: ASTER BYRD is a 55 year old male with a past medical history significant for hypertension, hyperlipidemia, COPD, DM2, BPH, tobacco dependence with continuous use, and obesity who presented to the emergency department via EMS after mechanical fall resulting in left hip pain. Evaluation emergency department revealed hypertension but otherwise stable vital signs, leukocytosis, unremarkable chemistry, and proteinuria. EKG showed normal sinus rhythm. Chest x-ray benign. Hip x-ray demonstrated a comminuted intertrochanteric left hip fracture. After discussion with the orthopedic service, it was decided that a hospitalist service would provide admission with Ortho consulting. Hospital Course Hospital Course: (1) Closed left hip fracture Now POD #2 cephalo-medullary nail. Patient is admitted to the medical floor. ASA 324 mg daily x 30 days for DVT ppx per Ortho. Orthopedics is consulted; appreciate expertise. Cleared for discharge. Discharge planning is consulted for home health PT. (2) COPD (chronic obstructive pulmonary disease) Without exacerbation. DuoNeb twice daily. Albuterol nebs as needed. Incentive spirometer, flutter valve. No indications for antibiotics or steroid therapy at this time. (3) DM type 2 (diabetes mellitus, type 2) Resume outpatient regimen at discharge. (4) Tobacco dependence Smoking cessation encouraged. Nicotine replacement therapies provided. (5) Hypertension Patient is not on home antihypertensives. Start lisinopril 20 mg daily. Cardiac diet Physical Exam Vital Signs: Temp Pulse Resp BP Pulse Ox 98.1 F 80 15 139/77 H 96 07/01/20 07:41 07/01/20 08:15 07/01/20 08:15 07/01/20 07:41 07/01/20 08:15 Intake & Output 06/30/20 07/01/20 07/02/20 06:59 06:59 06:59 Intake Total 3125 2505 120 Output Total 1770 2470 Balance 1355 35 120 Weight 102.8 kg 102.2 kg General appearance: PRESENT: no acute distress, cooperative, obese, well- developed, well-nourished Head exam: PRESENT: atraumatic, normocephalic Eye exam: PRESENT: conjunctiva pink, EOMI, PERRLA. ABSENT: scleral icterus Mouth exam: PRESENT: moist, tongue midline Respiratory exam: PRESENT: clear to auscultation daisha, symmetrical, unlabored. ABSENT: rales, rhonchi, wheezes Cardiovascular exam: PRESENT: RRR, +S1, +S2. ABSENT: diastolic murmur, rubs, systolic murmur Pulses: PRESENT: normal dorsalis pedis pul Vascular exam: PRESENT: normal capillary refill Rectal exam: PRESENT: deferred Extremities exam: PRESENT: full ROM, tenderness. ABSENT: calf tenderness, clubbing, pedal edema Musculoskeletal exam: PRESENT: ambulatory - touch down wt bearing w/ crutches Neurological exam: PRESENT: alert, awake, oriented to person, oriented to place, oriented to time, oriented to situation, CN II-XII grossly intact. ABSENT: motor sensory deficit Psychiatric exam: PRESENT: appropriate affect, normal mood. ABSENT: homicidal ideation, suicidal ideation Skin exam: PRESENT: dry, intact, warm. ABSENT: cyanosis, rash Results Laboratory Results: WBC 15.4 10^3/uL (4.0-10.5) H 07/01/20 06:12 RBC 4.95 10^6/uL (4.35-5.55) 07/01/20 06:12 Hgb 13.7 g/dL (13.5-17.0) 07/01/20 06:12 Hct 40.8 % (37.9-51.0) 07/01/20 06:12 MCV 82 fl (80-97) 07/01/20 06:12 MCH 27.8 pg (27.0-33.4) 07/01/20 06:12 MCHC 33.7 g/dL (32.0-36.0) 07/01/20 06:12 RDW 16.4 % (11.5-14.0) H 07/01/20 06:12 Plt Count 265 10^3/uL (150-450) 07/01/20 06:12 Lymph % (Auto) 15.0 % (13-45) 06/28/20 16:09 [place] % (Auto) 5.6 % (3-13) 06/28/20 16:09 Eos % (Auto) 0.9 % (0-6) 06/28/20 16:09 Baso % (Auto) 0.6 % (0-2) 06/28/20 16:09 Absolute Neuts (auto) 12.2 10^3/uL (1.7-8.2) H 06/28/20 16:09 Absolute Lymphs (auto) 2.3 10^3/uL (0.5-4.7) 06/28/20 16:09 Absolute Monos (auto) 0.9 10^3/uL (0.1-1.4) 06/28/20 16:09 Absolute Eos (auto) 0.1 10^3/uL (0.0-0.6) 06/28/20 16:09 Absolute Basos (auto) 0.1 10^3/uL (0.0-0.2) 06/28/20 16:09 Seg Neutrophils % 77.9 % (42-78) 06/28/20 16:09 Sodium 138.6 mmol/L (137-145) 06/30/20 05:44 Potassium 4.0 mmol/L (3.6-5.0) 06/30/20 05:44 Chloride 103 mmol/L (98-107) 06/30/20 05:44 Carbon Dioxide 26 mmol/L (22-30) 06/30/20 05:44 Anion Gap 10 (5-19) 06/30/20 05:44 BUN 10 mg/dL (7-20) 06/30/20 05:44 Creatinine 0.46 mg/dL (0.52-1.25) L 06/30/20 05:44 Est GFR ( Amer) > 60 (>60) 06/30/20 05:44 Est GFR (MDRD) Non-Af > 60 (>60) 06/30/20 05:44 Glucose 175 mg/dL (75-110) H 06/30/20 05:44 POC Glucose 161 mg/dL (70-110) H 07/01/20 06:13 Calcium 8.6 mg/dL (8.4-10.2) 06/30/20 05:44 Total Bilirubin 0.4 mg/dL (0.2-1.3) 06/28/20 16:09 Direct Bilirubin 0.0 mg/dL (0.0-0.4) 06/28/20 16:09 Neonat Total Bilirubin Not Reportable 06/28/20 16:09 Neonat Direct Bilirubin Not Reportable 06/28/20 16:09 Neonat Indirect Bili Not Reportable 06/28/20 16:09 AST 22 U/L (17-59) 06/28/20 16:09 ALT 18 U/L (<50) 06/28/20 16:09 Alkaline Phosphatase 101 U/L (38-126) 06/28/20 16:09 Total Protein 7.5 g/dL (6.3-8.2) 06/28/20 16:09 Albumin 4.0 g/dL (3.5-5.0) 06/28/20 16:09 Urine Color YELLOW 06/28/20 18:00 Urine Appearance CLEAR 06/28/20 18:00 Urine pH 5.0 (5.0-9.0) 06/28/20 18:00 Ur Specific [place] 1.033 06/28/20 18:00 Urine Protein >=500 mg/dL (NEGATIVE) H 06/28/20 18:00 Urine Glucose (UA) NEGATIVE mg/dL (NEGATIVE) 06/28/20 18:00 Urine Ketones NEGATIVE mg/dL (NEGATIVE) 06/28/20 18:00 Urine Blood NEGATIVE (NEGATIVE) 06/28/20 18:00 Urine Nitrite NEGATIVE (NEGATIVE) 06/28/20 18:00 Urine Bilirubin NEGATIVE (NEGATIVE) 06/28/20 18:00 Urine Urobilinogen NEGATIVE mg/dL (<2.0) 06/28/20 18:00 Ur Leukocyte Esterase NEGATIVE (NEGATIVE) 06/28/20 18:00 Urine WBC (Auto) 0 /HPF 06/28/20 18:00 Urine RBC (Auto) 2 /HPF 06/28/20 18:00 Squamous Epi Cells Auto <1 /HPF 06/28/20 18:00 Urine Mucus (Auto) RARE /LPF 06/28/20 18:00 Urine Ascorbic Acid NEGATIVE (NEGATIVE) 06/28/20 18:00 SARS-CoV-2 (PCR) NEGATIVE (NEGATIVE) 06/28/20 18:45 Impressions: Hip X-Ray 06/28/20 15:12 IMPRESSION: Comminuted intratrochanteric left hip fracture. Chest X-Ray 06/28/20 15:51 IMPRESSION: NO ACUTE RADIOGRAPHIC FINDING IN THE CHEST. Fluoroscopy 06/29/20 00:00 IMPRESSION: IMAGE(S) OBTAINED DURING PROCEDURE. Hip X-Ray 06/29/20 00:00 IMPRESSION: IMAGE(S) OBTAINED DURING PROCEDURE. Plan Plan of Treatment: Patient is discharged, in stable condition, with home health services. He is advised to follow up with his primary care provider within [address] Geller in 10 days. He is instructed to take his medications as prescribed. Return to the emergency department as needed for concerning symptoms. Time Spent: Greater than 30 Minutes Stroke Is this a Stroke Patient?: No Acute Heart Failure - Is this a Heart Failure Patient?: No
[2020-07-01] MEDS: LISINOPRIL 10 MG TABLET PO SCH (09:56)
[2020-07-01] MEDS: FAMOTIDINE 20 MG TABLET PO SCH (09:56)
[2020-07-01] MEDS: NICOTINE 21 MG/24 HR PATCH.TD24 TD SCH (09:56)
[2020-07-01] MEDS: ASPIRIN 325 MG TABLET PO SCH (09:56)
[2020-07-01 10:07] VITALS: BP 137/75
== END 2020-07-01 11:02 | disposition home or self-care (01) | DRG 482 ==
LOC: ER 15:04 → EH 18:44 → 4N 21:25
PROVIDERS: ADMIT Internal Medicine; ATTEND Registered Nurse
PROC: 0QS736Z Reposition Left Upper Femur with Intramedullary Internal Fixation Device, Percutaneous Approach (ICD-10-PCS; principal; 2020-06-29 14:30)
DX: S72.142A Displaced intertrochanteric fracture of left femur, initial encounter for closed fracture (principal); J44.9 Chronic obstructive pulmonary disease, unspecified; E11.9 Type 2 diabetes mellitus without complications; I10 Essential (primary) hypertension; E78.5 Hyperlipidemia, unspecified; N40.0 Benign prostatic hyperplasia without lower urinary tract symptoms; E66.9 Obesity, unspecified; W01.0XXA Fall on same level from slipping, tripping and stumbling without subsequent striking against object, initial encounter; E78.00 Pure hypercholesterolemia, unspecified; F17.210 Nicotine dependence, cigarettes, uncomplicated; Y92.511 Restaurant or cafe as the place of occurrence of the external cause; Z79.82 Long term (current) use of aspirin; Z88.3 Allergy status to other anti-infective agents; Z88.8 Allergy status to other drugs, medicaments and biological substances; Z91.09 Other allergy status, other than to drugs and biological substances
CPT/HCPCS: 01230; 36415; 71045; 80048; 80053; 81001; 82962; 85025; 85027; 87040; 87077; 87186; 87635; 93005; 93010; 94668; 94799; 96374; 96375; 99285; C1713; C9803; J0360; J0690; J1100; J1170; J1644; J1815; J2001; J2250; J2270; J2405; J2704; J2710; J3010; J3490; J7060; J7120